=== PATIENT | female | born 1985 | race Caucasian/White ===

== ENCOUNTER 2018-03-18 22:08 | Emergency (ER) | payer MEDICAID ==
[~2018-03-18] VITALS: Ht 170.2 cm; Wt 105.8 kg
[~2018-03-18 22:08] MED LIST: IBUP-1222 PO; NONE PER PT; OXYC-302 PO; PREN1TAB56 PO
[2018-03-18 22:10] VITALS: BP 131/84
[2018-03-18] MEDS ORDERED: LIDOCAINE-MPF 1%, 5ML ONE (23:27)
[2018-03-18] MEDS ORDERED: LIDOCAINE-MPF 1%, 5ML INFIL ONE (23:30)
== END 2018-03-19 00:08 | disposition home or self-care (01) ==
LOC: ED 23:59
DX: L60.0 Ingrowing nail (principal); Z88.5 Allergy status to narcotic agent
CPT/HCPCS: 11730; 99283

== ENCOUNTER 2019-09-18 09:41 | Emergency (ER) | payer MEDICAID ==
[~2019-09-18] VITALS: Ht 170.2 cm; Wt 102.7 kg
[2019-09-18 10:01] VITALS: BP 112/73
[2019-09-18 10:22] LABS: MICROSCOPIC AUTO
[2019-09-18 10:25] LABS: CULTURE INDICATED? YES
--- NOTE | 2019-09-18 10:48 | NUR ---
FIRST CONTACT WITH PT. PT C/O BELIEVES SHE HAS UTI- PAINFUL URINATION WITH BLEEDING. SX STARTED THIS MORNING. PT'S AOX4. RESPS EVEN AND UNLABORED.
[2019-09-18] MEDS ORDERED: CEFDINIR 300 MG CAPSULE ONE (10:51)
[2019-09-18] MEDS ORDERED: PHENAZOPYRIDINE 200 MG TABLET ONE (10:51)
--- NOTE | 2019-09-18 10:55 | NUR ---
PT MEDICATED PER EMAR. PT TOLERATED WELL.
--- NOTE | 2019-09-18 10:59 | NUR ---
Patient given discharge instructions and they have confirmed that they understand the instructions. Patient ambulatory with steady gait.
[2019-09-18] MEDS ORDERED: PHENAZOPYRIDINE 200 MG TABLET PO ONE (11:00)
[2019-09-18] MEDS ORDERED: CEFDINIR 300 MG CAPSULE PO ONE (11:00)
== END 2019-09-18 11:00 | disposition home or self-care (01) ==
LOC: ED 10:45
DX: R30.0 Dysuria (principal); R31.9 Hematuria, unspecified; Z88.5 Allergy status to narcotic agent
CPT/HCPCS: 81001; 87077; 87086; 87186; 99283

== ENCOUNTER 2020-01-12 20:19 | Emergency (ER) | payer MEDICAID ==
[~2020-01-12] VITALS: Ht 170.2 cm; Wt 104.2 kg
[2020-01-12 20:26] VITALS: BP 142/84
[2020-01-12 20:53] LABS: MICROSCOPIC AUTO
[2020-01-12 21:03] LABS: CULTURE INDICATED? YES
== END 2020-01-12 21:48 | disposition home or self-care (01) ==
LOC: ED 20:49
DX: N39.0 Urinary tract infection, site not specified (principal); R31.9 Hematuria, unspecified
CPT/HCPCS: 81001; 81025; 87077; 87086; 87186; 99283

== ENCOUNTER 2020-02-28 19:19 | Emergency (ER) | payer MEDICAID ==
[~2020-02-28] VITALS: Ht 172.7 cm; Wt 106.0 kg
[2020-02-28 19:22] VITALS: BP 128/87
[2020-02-28] MEDS ORDERED: FLUORESCEIN OPHTHALMIC 1 MG STRIP ONE (19:26)
[2020-02-28] MEDS ORDERED: PROPARACAINE OPHTH 0.5%, 15ML ONE (19:26)
--- NOTE | 2020-02-28 19:45 | NUR ---
PT SITTING UP IN CHAIR, LEFT EYE TEARFUL AND STATED EYE IS BLURRY. ERP AT HER SIDE FOR HARJEET
[2020-02-28] MEDS ORDERED: DIPH,PERTUSS(ACELL),TET VAC/PF 0.5 ML IM-VACC ONE ×2 (20:00→20:05)
--- NOTE | 2020-02-28 20:11 | NUR ---
PT MEDICATED PER MAR
== END 2020-02-28 20:14 | disposition home or self-care (01) ==
LOC: ED 20:02
DX: S05.02XA Injury of conjunctiva and corneal abrasion without foreign body, left eye, initial encounter (principal); Z98.51 Tubal ligation status; X58.XXXA Exposure to other specified factors, initial encounter; Y93.89 Activity, other specified; Y92.89 Other specified places as the place of occurrence of the external cause; Y99.8 Other external cause status
CPT/HCPCS: 90471; 90715; 99283